=== PATIENT | female | born 2000 | race Caucasian/White ===

== ENCOUNTER 2018-01-05 22:41 | Outpatient (CLI) | payer OTHER ==
[~2018-01-05] VITALS: Ht 167.6 cm; Wt 75.3 kg
[~2018-01-05 22:41] MED LIST: BACTRIM,SEPT1 TABLET PO; BENADRYL25 MG PO; HEMOCYTE324 MG PO; IBUPROFEN800 MG PO; IRON325 M1 PO; NAPROSYN500 MG PO; NO HOME MEDS; PRENATAL TABLE1 EAC3 PO; PYRIDIUM200 MG PO; SPRINTEC1 EACH PO
[2018-01-05 23:15] VITALS: BP 117/67
[2018-01-06 00:41] LABS: SOURCE SWAB
[2018-01-06 00:46] LABS: APPEARANCE CLOUDY ((CLEAR)); BILIRUBIN NEGATIVE; BLOOD NEGATIVE; COLOR YELLOW ((YELLOW)); GLUCOSE (STRIP) NEGATIVE; KETONES NEGATIVE; LEUKOCYTES LARGE; NITRITE NEGATIVE; PROTEIN (STRIP) 30; SPECIFIC GRAVITY 1.032 (1.000-1.030)
[2018-01-06 01:01] LABS: BACTERIA 1+ /HPF; EPITHELIAL CELLS 1+ /HPF; MUCUS RARE /LPF; RED BLOOD CELLS 0-5 /HPF (0-5)
[2018-01-06 01:02] LABS: CALCIUM OXALATE CRYSTALS 1+ /HPF
[2018-01-06 07:02] LABS: CANDIDA DNA PROBE NEGATIVE; GARDNERELLA DNA PROBE NEGATIVE; TRICHOMONAS DNA PROBE NEGATIVE
== END 2018-01-06 02:30 | disposition home or self-care (01) ==
LOC: LDRP-OP 22:41 → 2WEST 22:42
PROVIDERS: Advanced Practice Midwife; Obstetrics & Gynecology
DX: O26.893 Other specified pregnancy related conditions, third trimester (principal); N89.8 Other specified noninflammatory disorders of vagina; Z87.891 Personal history of nicotine dependence; Z3A.34 34 weeks gestation of pregnancy
CPT/HCPCS: 59025; 81003; 87480; 87491; 87510; 87591; 87660; G0378

== ENCOUNTER 2018-01-19 22:17 | Outpatient (CLI) | payer OTHER ==
[~2018-01-19] VITALS: Ht 170.2 cm; Wt 74.0 kg
[2018-01-19 22:42] VITALS: BP 118/75
[2018-01-19 23:40] VITALS: BP 120/69
[2018-01-20 00:38] VITALS: BP 121/73
[2018-01-20 00:47] LABS: APPEARANCE CLOUDY ((CLEAR)); BILIRUBIN NEGATIVE; BLOOD NEGATIVE; COLOR YELLOW ((YELLOW)); GLUCOSE (STRIP) NEGATIVE; KETONES NEGATIVE; LEUKOCYTES LARGE; NITRITE NEGATIVE; PROTEIN (STRIP) NEGATIVE
[2018-01-20 00:56] LABS: AMPHETAMINE NEGATIVE (500 ng/mL); BARBITURATES NEGATIVE (200 ng/mL); BENZODIAZEPINES NEGATIVE (150 ng/mL); BUPRENORPHINE NEGATIVE (10 ng/mL); COCAINE NEGATIVE (150 ng/mL); METHADONE NEGATIVE (200 ng/mL); METHAMPHETAMINE NEGATIVE (500 ng/mL); OPIATES (MORPHINE) NEGATIVE (100 ng/mL); OXYCODONE NEGATIVE (100 ng/mL); PHENCYCLIDINE NEGATIVE (25 ng/mL); PROPOXYPHENE NEGATIVE (300 ng/mL); THC CANNABINOIDS NEGATIVE (50 ng/mL); TRICYCLIC ANTIDEPRESSANTS NEGATIVE (300 ng/mL)
[2018-01-20 01:37] VITALS: BP 112/65
[2018-01-20 02:07] LABS: RED BLOOD CELLS NONE SEEN /HPF (0-5)
[2018-01-20 02:08] LABS: EPITHELIAL CELLS 3+ /HPF; WHITE BLOOD CELLS 20-30 /HPF (0-5)
[2018-01-20 02:09] LABS: BACTERIA 2+ /HPF; MUCUS NONE SEEN /LPF; UCUL ADDED? YES
[2018-01-20 02:24] VITALS: BP 100/55
== END 2018-01-20 03:34 | disposition home or self-care (01) ==
LOC: LDRP-OP 22:17 → 2WEST 22:19 → LDRP-OP 03-17 03:43
PROVIDERS: Advanced Practice Midwife
DX: O99.613 Diseases of the digestive system complicating pregnancy, third trimester (principal); R12 Heartburn; O47.03 False labor before 37 completed weeks of gestation, third trimester; Z3A.36 36 weeks gestation of pregnancy
CPT/HCPCS: 59025; 81003; 87086; G0378

== ENCOUNTER 2018-01-26 07:53 | Inpatient (IN) | payer OTHER ==
[~2018-01-26] VITALS: Ht 170.2 cm; Wt 77.7 kg
[2018-01-26] VITALS (15 sets, daily range): BP systolic 119–159; BP diastolic 69–82
[2018-01-26 10:27] LABS: BASOPHIL (%) 0.6 % (0-1); BASOPHIL COUNT 0.1 K/uL (0-0.1); EOSINOPHIL COUNT 0.2 K/uL (0-0.3); HEMATOCRIT 32.6 % (36.0-46.0); HEMOGLOBIN 9.8 G/DL (11.9-15.5); IMMATURE GRANULOCYTE (%) 0.5 % (0.0-0.7); LYMPHOCYTE (%) 23.2 % (15-42); LYMPHOCYTE COUNT 1.9 K/uL (1.0-2.8); MCH 21.9 PG (29.0-34.0); MCHC 30.1 G/DL (30.0-36.0); MCV 72.9 FL (83-99); MONOCYTE (%) 6.3 % (3-12); MONOCYTE COUNT 0.5 K/uL (0-0.8); NEUTROPHIL (%) 67.4 % (45-76); NEUTROPHIL COUNT 5.4 K/uL (1.8-6.4); PLATELET COUNT 189 K/uL (156-360); RBC DIS.WIDTH-CV 17.4 % (11.8-14.6); RBC DIS.WIDTH-SD 44.7 % (39-53); RED BLOOD COUNT 4.47 M/uL (3.80-5.20)
[2018-01-27 07:01] VITALS: BP 117/67
[2018-01-27 07:17] LABS: BASOPHIL (%) 0.4 % (0-1); EOSINOPHIL COUNT 0.1 K/uL (0-0.3); HEMATOCRIT 29.7 % (36.0-46.0); HEMOGLOBIN 8.9 G/DL (11.9-15.5); IMMATURE GRANULOCYTE (%) 0.6 % (0.0-0.7); LYMPHOCYTE (%) 18.6 % (15-42); MCV 73.3 FL (83-99); MONOCYTE (%) 5.8 % (3-12); MONOCYTE COUNT 0.6 K/uL (0-0.8); NEUTROPHIL (%) 73.6 % (45-76); PLATELET COUNT 162 K/uL (156-360); RBC DIS.WIDTH-CV 17.2 % (11.8-14.6); RBC DIS.WIDTH-SD 44.3 % (39-53); RED BLOOD COUNT 4.05 M/uL (3.80-5.20); WHITE BLOOD COUNT 10.8 K/uL (4.1-10.2)
[2018-01-27 14:36] VITALS: BP 137/83
[2018-01-27 23:00] VITALS: BP 127/65
[2018-01-28 07:25] VITALS: BP 118/73
== END 2018-01-28 16:15 | disposition home or self-care (01) | DRG 775 ==
LOC: LDRP-OP 07:53 → 2WEST 07:54 → LDRP-OP 03-17 03:48
PROVIDERS: Advanced Practice Midwife
PROC: 3E0P7VZ Introduction of Hormone into Female Reproductive, Via Natural or Artificial Opening (ICD-10-PCS; principal; 2018-01-26)
PROC: 10E0XZZ Delivery of Products of Conception, External Approach (ICD-10-PCS; principal; 2018-01-26)
PROC: 3E033VJ Introduction of Other Hormone into Peripheral Vein, Percutaneous Approach (ICD-10-PCS; principal; 2018-01-26)
DX: O36.5930 Maternal care for other known or suspected poor fetal growth, third trimester, not applicable or unspecified (principal); D62 Acute posthemorrhagic anemia; O99.824 Streptococcus B carrier state complicating childbirth; O99.02 Anemia complicating childbirth; D50.9 Iron deficiency anemia, unspecified; Z37.0 Single live birth; Z3A.37 37 weeks gestation of pregnancy
CPT/HCPCS: 85025; J2540; J7120